=== PATIENT | male | born 1940 | race Caucasian/White ===

== ENCOUNTER 2023-09-04 16:30 | Emergency (ER) | payer MEDICARE ==
[~2023-09-04] VITALS: Ht 177.8 cm; Wt 90.7 kg
[2023-09-04 16:45] VITALS: BP_SYST 144; PULSE 79; RESP 17; TEMP 98; O2SAT 96
[2023-09-04] MEDS: BACITRACIN 1 GM OINT TP ONE (17:35)
[2023-09-04] MEDS: DIPHTH,PERTUSS(ACELL),TET VAC 0.5 ML VIAL (Tdap) I.M. ONE (17:58)
[2023-09-04 18:49] VITALS: BP_SYST 144; PULSE 79; RESP 17; TEMP 98; O2SAT 96
== END 2023-09-04 18:49 | disposition home or self-care (01) ==
LOC: SED 16:30
DX: S00.81XA Abrasion of other part of head, initial encounter (principal); E11.9 Type 2 diabetes mellitus without complications; I10 Essential (primary) hypertension; Z79.899 Other long term (current) drug therapy; W01.0XXA Fall on same level from slipping, tripping and stumbling without subsequent striking against object, initial encounter; Y93.89 Activity, other specified; Y92.89 Other specified places as the place of occurrence of the external cause; Y99.8 Other external cause status
CPT/HCPCS: 70450-TC; 90715; 99285

== ENCOUNTER 2024-01-29 08:55 | Outpatient (CLI) | payer MEDICARE | END 2024-01-29 18:52 | disposition home or self-care (01) | LOC: SCT 08:55 | PROVIDERS: ATTEND Neurological Surgery | DX: J34.1 Cyst and mucocele of nose and nasal sinus (principal); G25.0 Essential tremor; M27.40 Unspecified cyst of jaw | CPT/HCPCS: 70450-TC ==